=== PATIENT | male | born 2000 | race Caucasian/White ===

== ENCOUNTER 2021-01-08 18:56 | Emergency (ER) | payer OTHER ==
[2021-01-08 19:06] VITALS: BP 145/87; PULSE 96; TEMP 98.1; BMI 23.6
[2021-01-08] MEDS ORDERED: IBUPROFEN 600 MG TABLET (FP) PO ONE ×2 (19:39→19:43)
== END 2021-01-08 20:53 | disposition home or self-care (01) ==
LOC: JERFT 18:56
DX: S62.91XA Unspecified fracture of right hand, initial encounter for closed fracture (principal); W20.0XXA Struck by falling object in cave-in, initial encounter; Y92.9 Unspecified place or not applicable
CPT/HCPCS: 73130-TC-RT-FY; 99284-25